=== PATIENT | female | born 1945 | race Caucasian/White ===

== ENCOUNTER → 2016-08-11 | Outpatient (REF) | payer OTHER, MEDICARE | LOC: M LAB REF 16:52 | PROVIDERS: ATTEND Internal Medicine | DX: D51.9 Vitamin B12 deficiency anemia, unspecified (principal) ==

== ENCOUNTER → 2019-10-23 | Outpatient (CLI) | payer MEDICARE, OTHER ==
--- NOTE | 2019-10-23 15:05 | REP ---
REASON: Pain after trauma. The accompanying frontal view of the chest is reviewed without availability of priors for comparison. There is no evidence of acute disease. There is no cardiomegaly. Multiple views of the right ribs shows no evidence of acute fracture or destructive osseous lesion. IMPRESSION: No evidence of acute disease. Electronically Signed by Myke Munoz DO 10/23/2019 05:27 P
--- NOTE | 2019-10-23 15:06 | REP ---
REASON: Pain after trauma. There is a comminuted radial styloid fracture with a lateral intra-articular component. IMPRESSION: Distal radial fracture as described above. Electronically Signed by Myke Munoz DO 10/23/2019 05:27 P
== END ==
LOC: M WUC 11:17
PROVIDERS: ATTEND Physician Assistant
DX: S52.511A Displaced fracture of right radial styloid process, initial encounter for closed fracture (principal); X58.XXXA Exposure to other specified factors, initial encounter; Y92.9 Unspecified place or not applicable

== ENCOUNTER 2019-12-06 06:38 | Day surgery (SDC) | payer MEDICARE, OTHER ==
[~2019-12-06 06:38] MED LIST: BSS IRR 500ML/OMIDRIA 4ML IRR BAG (OR ONLY) (J1097 PER ML) As Ordered ONE; DUOVISC (0.50ML VISCOAT/0.55ML PROVISC) OPHTH KIT As Ordered ONE; OFLOXACIN 0.3 % (OCUFLOX) OPTH SOL 5ML As Ordered ONE; PHENYLEPHRINE 2.5% OPHTH SOL 2ML As Ordered ONE; POVIDONE-IODINE 5% OPHTH PREP SOL 30ML As Ordered ONE; PROPARACAINE 0.5% OPHTH SOL 15ML As Ordered ONE; TROPICAMIDE 1% OPHTH SOLN 2ML As Ordered ONE
[2019-12-06] MEDS ORDERED: CEFUROXIME 1MG/0.1ML INTRACAMERAL INJ As Ordered ONE (06:58)
[2019-12-06] MEDS ORDERED: MIDAZOLAM INJ 2MG/2ML VIAL (J2250 PER 1MG) As Ordered ONE (07:40)
[2019-12-06] MEDS ORDERED: fentaNYL 100 MCG/2 ML INJECTION (J3010) As Ordered ONE (07:40)
--- NOTE | 2020-01-09 07:42 | RO ---
DATE OF OPERATION: 12/06/2019 PREOPERATIVE DIAGNOSIS: 1. Visually significant nuclear sclerotic cataract, left eye. POSTOPERATIVE DIAGNOSIS: 1. Visually significant nuclear sclerotic cataract, left eye. PROCEDURE: 1. Cataract extraction with use of phacoemulsification, and placement of intraocular lens, AU00T0, 20.0D, left eye. SURGEON: Dom Carlson DO [employer] W[employer]OW INSTALLER: ANESTHESIA: Local (Omidria with MAC) COMPLICATIONS: None POSTOPERATIVE CONDITION: Stable INDICATIONS FOR SURGERY: 1. Blurred vision affecting patients activities of daily living DESCRIPTION OF PROCEDURE: The patient was seen in the preoperative area and properly identified. The correct operative eye was identified and marked. The patient received topical anesthetic, antibiotics, and topical dilating drops. The patient was then transferred to the operating room. The correct side was re-identified and a time-out was performed. The eye was prepped and draped in a sterile fashion. The eyelids were isolated with Tegaderm tape and the lids were held open with an adjustable speculum. A 1.0mm paracentesis incision was made. Omidria was then injected into the anterior chamber. Viscoelastic was then injected into the anterior chamber through the paracentesis. Using a 2.4mm sharp-tipped keratome, the anterior chamber was entered via a temporal clear cornea incision. A continuous curvilinear capsulorrhexis was created with Utrata forceps. Hydrodissection was performed with BSS on a blunt cannula until the nucleus was able to rotate freely. The crystalline lens was phacoemulsified and aspirated. Irrigation/aspiration was used to remove the cortical material Cohesive viscoelastic was placed into the capsular bag to deepen it. The implant was placed into the capsular bag and allowed to unfold. Placement was confirmed by visualizing the anterior capsulorrhexis. Irrigation/aspiration was used to remove the viscoelastic. The clear corneal incision was hydrated with BSS on a blunt cannula. The lens was well positioned. Intracameral antibiotic was injected into the anterior chamber. The incisions were then tested for leaks and found to be negative. The eye was then palpated for appropriate pressure and adjusted accordingly with BSS. The eyelid speculum was then carefully removed. A shield was placed over the eye. The patient tolerated the procedure well and was discharge to the recovery unit in a stable condition. [facility]ITALPa[facility]
== END 2019-12-06 08:16 | disposition home or self-care (01) ==
LOC: M SDC 06:38
PROVIDERS: ATTEND Ophthalmology
DX: H25.12 Age-related nuclear cataract, left eye (principal); K21.9 Gastro-esophageal reflux disease without esophagitis; Z79.899 Other long term (current) drug therapy
CPT/HCPCS: 66984; J1097; J2250; J3010; V2632

== ENCOUNTER → 2020-04-01 | Outpatient (CLI) | payer SELFPAY | LOC: M LABSMTC 13:02 | PROVIDERS: ATTEND Pediatrics | DX: Z20.828 Contact with and (suspected) exposure to other viral communicable diseases (principal) ==

== ENCOUNTER → 2020-10-02 | Outpatient (CLI) | payer MEDICARE ==
--- NOTE | 2020-10-02 11:28 | REP ---
INDICATION: CAROTID STENOSIS COMPARISON: None. TECHNIQUE: Real-time ultrasound evaluation and duplex Doppler interrogation of the extracranial carotid vasculature is performed. FINDINGS: There is mild plaquing and narrowing in both carotid bulbs extending into the internal and external carotid arteries. Luminal narrowing is less than 50%. There is no evidence of hemodynamically significant stenosis of either internal carotid artery. Normal flow velocities are seen. The vertebral arteries demonstrate normal direction of flow. RIGHT LEFT Peak systolic velocity ICA 128.7 cm/s 99.2 cm/s End diastolic velocity ICA 34.5 cm/s 35.5 cm/s Peak systolic velocity CCA 100.7 cm/s 118.6cm/s Peak systolic velocity ECA 100.6 cm/s 82.7 cm/s ICA/CCA ratio 1.28 0.84 IMPRESSION: Bilateral luminal narrowing of the internal carotid arteries less than 50%. No evidence of hemodynamically significant stenosis. <Electronically signed by Rocky Carrera > 10/02/20 112
== END ==
LOC: M RAD 10:52
PROVIDERS: ATTEND Internal Medicine
DX: I65.29 Occlusion and stenosis of unspecified carotid artery (principal)

== ENCOUNTER → 2021-07-07 | Outpatient (REF) | payer MEDICARE ==
[2021-07-07 17:09] LABS: C REACTIVE PROTEIN QUANTITATIV 0.38 MG/DL (0.00-0.30); RHEUMATOID FACTOR QUANT < 10.0 IU/ML (<15.0); URIC ACID 5.1 MG/DL (2.6-6.0)
== END ==
LOC: M LAB REF 16:06
PROVIDERS: ATTEND Internal Medicine
DX: M19.011 Primary osteoarthritis, right shoulder (principal)

== ENCOUNTER 2023-07-17 17:47 | Emergency (ER) | payer MEDICARE ==
[~2023-07-17] VITALS: Ht 175.3 cm; Wt 89.4 kg
[2023-07-17] MEDS: LIDOCAINE W/EPINEPHRINE 1% 20ML VIAL SC ONE (20:23)
[2023-07-17] MEDS ORDERED: CEPH500C PO (21:44)
[2023-07-17 21:47] VITALS: BP 138/74; TEMP 98.9; O2SAT 97
== END 2023-07-17 21:49 | disposition home or self-care (01) ==
LOC: M ED 17:47
DX: S01.81XA Laceration without foreign body of other part of head, initial encounter (principal); R07.82 Intercostal pain; Y92.9 Unspecified place or not applicable; Y93.9 Activity, unspecified; Y99.9 Unspecified external cause status; W19.XXXA Unspecified fall, initial encounter; Z79.899 Other long term (current) drug therapy

== ENCOUNTER → 2023-08-31 | Outpatient (CLI) | payer MEDICARE ==
[~2023-08-31] MED LIST changes: -BSS IRR 500ML/OMIDRIA 4ML IRR BAG (OR ONLY) (J1097 PER ML) As Ordered ONE; +CEPH500C PO; -DUOVISC (0.50ML VISCOAT/0.55ML PROVISC) OPHTH KIT As Ordered ONE; -OFLOXACIN 0.3 % (OCUFLOX) OPTH SOL 5ML As Ordered ONE; -PHENYLEPHRINE 2.5% OPHTH SOL 2ML As Ordered ONE; -POVIDONE-IODINE 5% OPHTH PREP SOL 30ML As Ordered ONE; -PROPARACAINE 0.5% OPHTH SOL 15ML As Ordered ONE; -TROPICAMIDE 1% OPHTH SOLN 2ML As Ordered ONE
== END ==
LOC: M RAD 11:00
PROVIDERS: ATTEND Internal Medicine
DX: R42 Dizziness and giddiness (principal); R55 Syncope and collapse

== ENCOUNTER → 2023-09-15 | Outpatient (CLI) | payer MEDICARE | LOC: M PLARAD 08:42 | PROVIDERS: ATTEND Internal Medicine | DX: R51.9 Headache, unspecified (principal) ==

== ENCOUNTER → 2023-12-06 | Outpatient (CLI) | payer MEDICARE ==
[2023-12-06 19:25] LABS: BASO # 0.1 10^3/uL (0.0-0.2); BASO % 0.8 % (0.0-1.0); EOS # 0.1 10^3/uL (0.0-0.5); EOS % 1.5 % (0.0-3.0); HEMATOCRIT 48.7 % (36.0-47.0); HEMOGLOBIN 15.5 g/dl (12.0-15.5); LYMPH # 2.7 10^3/uL (1.5-5.0); LYMPH % 45.4 % (24.0-44.0); MEAN CORPUSCULAR HEMOGLOBIN 28.9 pg (27.0-33.0); MEAN CORPUSCULAR HGB CONC 31.8 g/dl (32.0-36.5); MEAN CORPUSCULAR VOLUME 90.9 fl (80.0-96.0); MONO # 0.3 10^3/uL (0.0-0.8); MONO % 5.7 % (2.0-8.0); NEUTROPHILS # 2.8 10^3/uL (1.5-8.5); NEUTROPHILS % 46.4 % (36.0-66.0); PLATELET COUNT, AUTOMATED 228 10^3/uL (150-450); RED BLOOD COUNT 5.36 10^6/uL (4.00-5.40)
[2023-12-06 20:05] LABS: ALKALINE PHOSPHATASE 86 U/L (46-116); ALT/SGPT 19 U/L (7.0-40); AST/SGOT 18 U/L (<34); BILIRUBIN,TOTAL 0.7 MG/DL (0.3-1.2); BLOOD UREA NITROGEN 16 MG/DL (9-23); CALCIUM LEVEL 9.5 MG/DL (8.3-10.6); CARBON DIOXIDE LEVEL 28 MMOL/L (20-31); CHLORIDE LEVEL 104 MMOL/L (98-107); CREATININE FOR GFR 0.83 MG/DL (0.55-1.30); GLOMERULAR FILTRATION RATE > 60.0 (>39); GLUCOSE, FASTING 88 MG/DL (74-106); IRON (FE) 53 UG/DL (50-170); POTASSIUM SERUM 3.8 MMOL/L (3.5-5.1); SODIUM LEVEL 140 MMOL/L (136-145); TOTAL IRON BINDING CAPACITY 312 UG/DL (250-425); TOTAL PROTEIN 7.6 G/DL (5.7-8.2)
[2023-12-06 20:08] LABS: FERRITIN 70.5 NG/ML (7.3-270.7); THYROID STIMULATING HORMONE 2.481 uIU/ML (0.55-4.78)
[2023-12-06 20:11] LABS: FREE T4 1.23 NG/DL (0.89-1.76)
== END ==
LOC: M WUC 13:54
PROVIDERS: ATTEND Physician Assistant
DX: R53.1 Weakness (principal); D50.9 Iron deficiency anemia, unspecified